=== PATIENT | female | born 1965 | race Caucasian/White ===

== ENCOUNTER 2018-06-01 14:30 | Inpatient (IN) | payer BC ==
[2018-06-01] VITALS (8 sets, daily range): BP systolic 112–126; BP diastolic 79–87
[~2018-06-01] VITALS: Ht 172.7 cm; Wt 60.8 kg
[~2018-06-01 14:30] MED LIST changes: -OMEP-137 PO
[2018-06-01] MEDS ORDERED: HYDROmorphone PCA 6 MG/30 ML IV PRN (14:55)
[2018-06-01] MEDS ORDERED: NS(*) 0.9% 1000 ML BAG 1,000 ML IV PRN ×2 (14:55→21:30)
[2018-06-01] MEDS ORDERED: ONDANSETRON 4 MG/2 ML VIAL IVP PRN (14:55)
[2018-06-01] MEDS ORDERED: NORMOSOL R SOLN(*) 1000 ML BAG 1,000 ML IV ONE (15:05)
[2018-06-01] MEDS ORDERED: NALOXONE HCL 0.4 MG/ML VIAL IVP PRN (15:05)
[2018-06-01] MEDS ORDERED: FAMOTIDINE 20 MG TAB PO ONE (15:05)
[2018-06-01] MEDS ORDERED: OMEP-137 PO (15:20)
[2018-06-01] MEDS ORDERED: ERTAPENEM(*) 1 GM VIAL 1 GM in NS(*) 0.9% 100 ML ADDVANT BAG 100 ML IVPB ONE (15:20)
[2018-06-01] MEDS ORDERED: LIDOCAINE MPF 1% 5 ML VIAL ONE (18:35)
[2018-06-01] MEDS ORDERED: DEXAMETHASONE SOD 4 MG/ML VIAL ONE (18:35)
[2018-06-01] MEDS ORDERED: ROCURONIUM BROM 10 MG/ML 10 ML ONE (18:35)
[2018-06-01] MEDS ORDERED: SUGAMMADEX SOD 200 MG/2 ML SDV ONE (18:35)
[2018-06-01] MEDS ORDERED: fentaNYL CITR 250 MCG/5 ML AMP ONE (18:35)
[2018-06-01] MEDS ORDERED: ONDANSETRON 4 MG/2 ML VIAL ONE (18:35)
[2018-06-01] MEDS ORDERED: PROPOFOL EMUL(*) 10MG/ML 20 ML 20 ML ONE (18:35)
[2018-06-01] MEDS ORDERED: KETAMINE HCL 200 MG/20 ML MDV ONE (18:36)
[2018-06-01] MEDS ORDERED: IOPAMIDOL 61% 75 ML INFUS BTL 75 ML ONE (18:40)
[2018-06-01] MEDS ORDERED: ROPIVACAINE 0.5% 20 ML VIAL ONE (18:40)
--- NOTE | 2018-06-01 18:48 | Gen Surgery History & Physical ---
History of Present Illness Chief Complaint RUQ abdominal pain History of Present Illness 52yo female presents with 4 days of constant RUQ abdominal pain. She's had intermittent RUQ pain over the last 9 months but 4 days ago it has been constant. She was seen by her PCM today and an U/S was found to be c/w acute cholecystitis so I was consulted by her PCM. She has had some nausea with 1 episode of emesis. No fevers or chills. No diarrhea or constipation. No jaundice, choleuria, or steatorrhea. History Problems: (1) GERD (gastroesophageal reflux disease) Status: Chronic (2) Tobacco dependence Status: Chronic Home Meds Reported Medications Omeprazole (OMEPRAZOLE) 20 Mg Tablet.dr, 40 MG PO QDAY, TAB 06/01/18 Allergies: Coded Allergies: No Known Drug Allergies (Verified , 10/21/15) Review of Systems All Systems Reviewed/Normal: Yes, Except as Noted Gastrointestinal: Nausea, Abdominal Pain Exam General Appearance: Alert, Awake, No Acute Distress, Afebrile Neuro: No Gross deficits Eyes: PERRLA GI: Other (Soft, RUQ TTP with strongly positive Velásquez's sign) Extremities: Warm, Perfused Assessment and Plan Problems: (1) Acute calculous cholecystitis Status: Acute Assessment & Plan: 06/01/18: Pt is admitted, started on IV abx, pain control, and IV fluids. I have recommended surgery with gallbladder removal. Will start laparoscopically but she is at higher risk of conversion to open surgery due to the duration of her symptoms. I have explained the surgery to her in great detail including both laparoscopic and open surgery as well as the alternatives, risks, and expected recovery. She indicates her understanding of this discussion and her questions have been answered and she would like to proceed with surgery. Condition Stable. Time Spent: < 30 min Venous Thromboembolism VTE Risk Physician Assess for VTE Risk: Yes Patient's VTE Risk: Low VTE Diagnostic Test 2 Days Prior to Admit: No Antithrombotics Is Pt On Any Antithrombotics?: No BRENNON MCGHEE MD Jun 01, 2018 18:48
[2018-06-01] MEDS ORDERED: DESFLURANE 240 ML BTL INH ONE (19:00)
[2018-06-01] MEDS ORDERED: fentaNYL CITR 100 MCG/2 ML AMP ONE ×2 (20:45→21:33)
--- NOTE | 2018-06-01 21:02 | RADIOLOGY IMAGING REPORT ---
FACILITY: [facility] - [place], [place] PATIENT NAME: Thea Carranza : 1965 MR: [id number] V: [id number] EXAM DATE: ORDERING PHYSICIAN: BRENNON MCGHEE TECHNOLOGIST: Location: [facility] [place] Patient: Thea Carranza : 1965 Visit/Account:[id number] Date of Sevice: 06/01/2018 EXAMINATION: Intraoperative fluoroscopic images of the right upper abdomen. HISTORY: Laparoscopic cholecystectomy. FINDINGS: Fluoroscopic images of the right upper abdomen were obtained in the OR during an intraoperative chola ngiogram. The cystic duct is cannulated. There is contrast opacification of the common bile duct and central i ntrahepatic ducts. No abnormal ductal dilatation or intraductal filling defect. Contrast passes int o the duodenum. There is partial opacification of the proximal pancreatic duct Dose: DAP was 0.18798 mGy*m2. IMPRESSION: Fluoroscopy was utilized during an intraoperative cholangiogram. No suspicious intraductal filling d efect. Please see the separate operative report for further description of findings. Report Dictated By: Andres Bird MD at 06/01/2018 8:57 PM Report E-Signed By: Andres Bird MD at 06/01/2018 8:58 PM WSN:[email or web address]
[2018-06-01] MEDS ORDERED: FLUSH 10 ML SYR IVP PRN (21:30)
--- NOTE | 2018-06-01 21:52 | Post Operative Progress Note ---
Post Operative Progress Note Date: Jun 01, 2018 Time: 21:34 Surgeon: Heath Dictation number: [id number] Anesthesia: GETA by Dr. Vargas Pre-Op Diagnosis: Acute cholecystitis Post-Op Diagnosis: YU Findings: Severe acute cholecystitis GB full of stones Normal IOC Procedure(s): Lap michelle with gram Specimen Removed:(May be N/A): GB and contents Complications: None Fluids: See anesthesia record Estimated Blood Loss: 60mL Date OP Note Dictated: Jun 01, 2018 Time OP Note Dictated: 21:35 BRENNON MCGHEE MD Jun 01, 2018 21:52
[2018-06-01] MEDS: PIPERACILLIN/TAZO*3.375GM VIAL 3.375 GM in NS(*) 0.9% 100 ML ADDVANT BAG 100 ML IVPB SCH (23:36)
--- NOTE | 2018-06-01 23:36 | OPERATIVE REPORT 1 ---
EVENT DATE: June 01, 2018 SURGEON: Leoncio Joe MD ANESTHESIOLOGIST: Niles Vargas MD ANESTHESIA: General endotracheal anesthesia. PREOPERATIVE DIAGNOSIS Acute cholecystitis. POSTOPERATIVE DIAGNOSIS Acute cholecystitis. PROCEDURE PERFORMED Laparoscopic cholecystectomy with intraoperative cholangiogram. COMPLICATIONS None. CONDITION Stable. BLOOD LOSS 60 mL INDICATIONS A 52-year-old female who presented to her primary care provider, Taryn Gao , with right upper quadrant abdominal pain, and she ordered some labs and an ultrasound which were consistent with acute cholecystitis. She contacted me, and I had the patient direct admitted and consented for cholecystectomy. The patient has had right upper quadrant pain off and on for the last nine months, but over the last four days, it has become more constant and getting more severe. DESCRIPTION OF PROCEDURE Patient was brought to the operating room and placed supine on the operating table. General endotracheal anesthesia was administered, and her abdomen was prepped and draped in a sterile fashion. A timeout was completed. I injected the infraumbilical rim with 0.5% ropivacaine plain. I made a curvilinear smiley face-type incision in the inferior umbilical rim and dissected down through the dermis and subcutaneous fat. I made a vertical incision in the midline fascia and placed two interrupted 0 Vicryl sutures transversely through the vertical fascial defect. I inserted a 12 mm Tato type port through this wound and secured it into place with sutures. I insufflated the abdomen to a pressure of 15 mmHg and inserted a 5 mm, 30-degree angled scope through this port. Next, under direct visualization, I placed a 5 mm port in the epigastric midline and two 5 mm ports in the right upper quadrant. Gross inspect of the abdominal cavity failed to reveal any evidence of other pathology. The gallbladder was easily visible, very large, and obviously injected. There were no signs of entry-related injury. Next, I had the patient placed in reverse Trendelenburg and planed toward her left to eviscerate the right upper quadrant. I could not grasp the gallbladder because it was too inflamed, and so I used a laparoscopic decompression needle and aspirated bile from the gallbladder until it was decompressed, and I could grab it. I then retracted the gallbladder towards the patient's right shoulder. There were adhesions of omentum to the liver. I took down these with hook electrocautery to avoid tearing the liver and causing bleeding. Once this was done, I had to take some adhesions between the duodenum and infundibulum down. This was done with hook electrocautery without any injury to the duodenum. I then divided the peritoneum overlying the infundibulum on both the medial and lateral aspects of the gallbladder. I stripped the peritoneum down to the triangle of Calot, and with careful dissection, the anatomic structures were not immediately clear. I took down fiber by fiber until I could identify the cystic duct and arteries. The cystic duct and arteries were actually stuck together initially. I saw a tubular structure which was coming out of the infundibulum that I took for the cystic duct, but when I placed a clip across it, I made a ductotomy, and it squirted blood, so I had to quickly clip this. It was a pretty sizable artery. With a little more dissection, I was able to tease apart the cystic duct and artery, and then I clipped the duct and artery proximally and distally and divided them between clips. I then clipped the duct at the infundibulum-cystic duct junction. I made ductotomy just distal to the clip and then milked the duct distally and proximally to remove any debris from the duct, and there was none. I then inserted a cholangiocatheter which was clamped into place. A cholangiogram was completed which revealed that I was in the cystic duct, away from the common duct structures, and I could observe contrast flowing up into the intrahepatic biliary system and also down through common bile duct into the duodenum, all without filling defects. I terminated the cholangiogram and placed three clips distal to the ductotomy and divided the duct between clips. I then divided the posterior attachments of the gallbladder and it from the gallbladder fossa. I placed the gallbladder in a surgical specimen retrieval bag and removed it from the abdomen through the umbilical port site. The gallbladder was so large and so full of stones that I had to make both the skin incision and the fascial incision much bigger to get it out. I then irrigated and dried the right upper quadrant. There was some oozing from the gallbladder fossa, and this was controlled with electrocautery. I then covered the gallbladder fossa with Surgicel and Luis. I made sure there was no bleeding when this was all done, and then I removed all the irrigation fluid from Stout pouch and around the liver and gallbladder fossa. I then removed all the instruments and ports, desufflated the abdomen, removed the umbilical port, and then closed the now enlarged fascial defect with a running 0 Vicryl suture and tied the running one as well as the cephalad and caudad preplaced sutures down with good reapproximation of the remaining fascial defect. I then closed the skin at each port site with 4-0 Monocryl subcuticular sutures. The skin was cleaned and dried, and Steri-Strips were applied, followed by sterile surgical dressing. The patient was awakened, extubated in the operating room, and transported to the recovery room in stable condition having tolerated the procedure without any apparent problems. YOLETTE
[2018-06-02] VITALS (9 sets, daily range): BP systolic 86–114; BP diastolic 47–78; Ht 172.7 cm; Wt 60.8 kg
[2018-06-02] MEDS: PIPERACILLIN/TAZO*3.375GM VIAL 3.375 GM in NS(*) 0.9% 100 ML ADDVANT BAG 100 ML IVPB SCH ×3 (06:14→17:35)
--- NOTE | 2018-06-02 06:37 | General Surgery Progress Note ---
Subjective Progress Notes Subjective Feeling better this morning. RUQ pain is better, now with appropriate postop pain. Passing flatus. Physical Exam Vital Signs Date Time Temp Pulse Resp B/P (MAP) Pulse Ox O2 Delivery O2 Flow Rate FiO2 06/02/18 06:08 12 97 06/02/18 04:00 97.8 69 106/71 (83) Nasal Cannula 1.0 General Appearance: Alert, Awake, No Acute Distress, Afebrile GI: Other (Soft, appropriate postop TTP, dressings C/D/I.) Extremities: Warm, Perfused Assessment and Plan Problems: (1) Acute calculous cholecystitis Status: Acute Assessment & Plan: 06/01/18: Pt is admitted, started on IV abx, pain control, and IV fluids. I have recommended surgery with gallbladder removal. Will start laparoscopically but she is at higher risk of conversion to open surgery due to the duration of her symptoms. I have explained the surgery to her in great detail including both laparoscopic and open surgery as well as the alternatives, risks, and expected recovery. She indicates her understanding of this discussion and her questions have been answered and she would like to proceed with surgery. 06/02/18: POD#1 s/p lap michelle with gram for severe acute calculous cholecystitis. Pt doing well. Will start clear diet and advance to regular diet as tolerated. If she tolerates this, will convert to PO meds and plan on d /c later today vs tomorrow morning. Condition Stable. Time Spent: < 30 min Exam Sepsis Risk: No Definite Risk BRENNON MCGHEE MD Jun 02, 2018 06:37
[2018-06-02] MEDS ORDERED: HYDROmorphone HCL 2 MG/ML SDV IVP PRN (06:40)
[2018-06-02] MEDS: DOCUSATE SODIUM 100 MG CAP PO SCH ×2 (07:58→20:39)
[2018-06-02] MEDS: PANTOPRAZOLE SOD 40 MG TABEC PO SCH (07:58)
[2018-06-02] MEDS ORDERED: PANTOPRAZOLE SOD 40 MG IV VIAL IVP SCH (09:00)
[2018-06-02] MEDS ORDERED: NALOXONE HCL 0.4 MG/ML VIAL IVP PRN ×2 (15:05→15:10)
[2018-06-02] MEDS ORDERED: ACETAMINOPHEN 325 MG TAB PO PRN (15:05)
[2018-06-02] MEDS ORDERED: HYDROmorphone PCA 6 MG/30 ML IV PRN (15:05)
--- NOTE | 2018-06-02 15:08 | Miscellaneous Provider Note ---
Miscellaneous Provider Note Note Pt is feeling a little more bloated with less flatus. Had salad and tater tots for lunch. Will return to clear diet and will give her time for ileus to resolve given severity of cholecystitis. BRENNON MCGHEE MD Jun 02, 2018 15:08
[2018-06-02] MEDS: KCL/D1/2NS 20 MEQ 1000 ML 1,000 ML IV SCH (16:06)
[2018-06-03] VITALS (7 sets, daily range): BP systolic 100–119; BP diastolic 63–80
[2018-06-03] MEDS: PIPERACILLIN/TAZO*3.375GM VIAL 3.375 GM in NS(*) 0.9% 100 ML ADDVANT BAG 100 ML IVPB SCH ×5 (00:19→23:55)
[2018-06-03] MEDS: KCL/D1/2NS 20 MEQ 1000 ML 1,000 ML IV SCH ×2 (04:19→23:55)
[2018-06-03] MEDS: PANTOPRAZOLE SOD 40 MG TABEC PO SCH (08:39)
[2018-06-03] MEDS: DOCUSATE SODIUM 100 MG CAP PO SCH ×2 (08:39→21:19)
--- NOTE | 2018-06-03 11:24 | General Surgery Progress Note ---
Subjective Progress Notes Subjective Feeling better, still feels bloated. Denies nausea. Tolerating clear liquids. No BM or flatus yet. Physical Exam Vital Signs Date Time Temp Pulse Resp B/P (MAP) Pulse Ox O2 Delivery O2 Flow Rate FiO2 06/03/18 09:09 12 93 06/03/18 09:07 Nasal Cannula 1.0 06/03/18 07:43 98.3 75 110/75 (87) General Appearance: Alert, Awake, No Acute Distress, Afebrile Neuro: No Gross deficits ENT: Moist Mucous Membranes Cardiovascular: Regular Rate and Rhythm Respiratory: No Respiratory Distress, Clear to Auscultation GI: Soft and Non-Tender (Bowel sounds present. Incisions okay) Extremities: Soft and Non Tender Psych: Alert & Oriented X3, Appropriate Mood & Affect Assessment and Plan Problems: (1) Acute calculous cholecystitis Status: Acute Assessment & Plan: 06/01/18: Pt is admitted, started on IV abx, pain control, and IV fluids. I have recommended surgery with gallbladder removal. Will start laparoscopically but she is at higher risk of conversion to open surgery due to the duration of her symptoms. I have explained the surgery to her in great detail including both laparoscopic and open surgery as well as the alternatives, risks, and expected recovery. She indicates her understanding of this discussion and her questions have been answered and she would like to proceed with surgery. 06/02/18: POD#1 s/p lap michelle with gram for severe acute calculous cholecystitis. Pt doing well. Will start clear diet and advance to regular diet as tolerated. If she tolerates this, will convert to PO meds and plan on d /c later today vs tomorrow morning. 06/03/18: POD#2 s/p lap michelle with IOC. Tolerating clear liquids, advance as tolerated after having bowel function. Dulcolax suppository. DC MECHANICAL TEST TECHNICIAN. [place] for expected incisional pain. Will hold discharge until return of bowel function. Time Spent: < 30 min Exam Sepsis Risk: No Definite Risk JEFF PATEL MD Jun 03, 2018 11:23
[2018-06-03] MEDS ORDERED: APAP/HYDROCODONE 325/5 TAB PO PRN (11:25)
[2018-06-03] MEDS ORDERED: BISACODYL 10 MG SUPP PR ONE (11:25)
[2018-06-03] MEDS: APAP/HYDROCODONE 325/5 TAB PO PRN ×2 (15:56→20:10)
[2018-06-04] MEDS: APAP/HYDROCODONE 325/5 TAB PO PRN ×3 (03:04→14:51)
[2018-06-04 03:05] VITALS: BP 120/77
[2018-06-04] MEDS: PIPERACILLIN/TAZO*3.375GM VIAL 3.375 GM in NS(*) 0.9% 100 ML ADDVANT BAG 100 ML IVPB SCH (05:31)
[2018-06-04 07:11] VITALS: BP 101/56
[2018-06-04] MEDS: DOCUSATE SODIUM 100 MG CAP PO SCH ×2 (08:49→21:12)
[2018-06-04] MEDS: PANTOPRAZOLE SOD 40 MG TABEC PO SCH (08:49)
--- NOTE | 2018-06-04 09:31 | General Surgery Progress Note ---
Subjective Progress Notes Subjective Feeling better. Still a little bloated, passing some flatus. Tolerating clear diet. Physical Exam Vital Signs Date Time Temp Pulse Resp B/P (MAP) Pulse Ox O2 Delivery O2 Flow Rate FiO2 06/04/18 07:27 90 Room Air 06/04/18 07:11 97.6 73 20 101/56 (71) 06/04/18 05:31 1.0 General Appearance: Alert, Awake, No Acute Distress, Afebrile GI: Other (Soft, appropriate postop TTP, incisions all look good without erythema or drainage.) Extremities: Warm, Perfused Assessment and Plan Problems: (1) Acute calculous cholecystitis Status: Acute Assessment & Plan: 06/01/18: Pt is admitted, started on IV abx, pain control, and IV fluids. I have recommended surgery with gallbladder removal. Will start laparoscopically but she is at higher risk of conversion to open surgery due to the duration of her symptoms. I have explained the surgery to her in great detail including both laparoscopic and open surgery as well as the alternatives, risks, and expected recovery. She indicates her understanding of this discussion and her questions have been answered and she would like to proceed with surgery. 06/02/18: POD#1 s/p lap michelle with gram for severe acute calculous cholecystitis. Pt doing well. Will start clear diet and advance to regular diet as tolerated. If she tolerates this, will convert to PO meds and plan on d /c later today vs tomorrow morning. 06/03/18: POD#2 s/p lap michelle with IOC. Tolerating clear liquids, advance as tolerated after having bowel function. Dulcolax suppository. DC HAND I BLOCKER. [address] for expected incisional pain. Will hold discharge until return of bowel function. 06/04/18: POD#3. Doing well. Tolerating clear diet. Still a little bloated but passing a little more flatus. Will try regular diet today and stop IV fluids and meds and convert over to PO meds. If she does well with this today then will plan on d/c to home this evening vs tomorrow morning. Condition Stable. Time Spent: < 30 min Exam Sepsis Risk: No Definite Risk BRENNON MCGHEE MD Jun 04, 2018 09:31
[2018-06-04 12:11] VITALS: BP 119/83
[2018-06-04 14:51] VITALS: BP 123/79
[2018-06-04] MEDS ORDERED: BISACODYL 10 MG SUPP PR ONE (16:50)
[2018-06-04 19:49] VITALS: BP 119/67
[2018-06-05] VITALS (8 sets, daily range): BP systolic 105–128; BP diastolic 69–85
[2018-06-05] MEDS: APAP/HYDROCODONE 325/5 TAB PO PRN (00:45)
[2018-06-05] MEDS ORDERED: NS(*) 0.9% 1000 ML BAG 1,000 ML IV PRN (07:50)
--- NOTE | 2018-06-05 07:50 | General Surgery Progress Note ---
Subjective Progress Notes Subjective Still c/o bloating and RLQ abdominal pain. Physical Exam Vital Signs Date Time Temp Pulse Resp B/P (MAP) Pulse Ox O2 Delivery O2 Flow Rate FiO2 06/05/18 07:33 94 Nasal Cannula 1.0 06/05/18 07:26 97.8 59 16 117/79 (92) General Appearance: Alert, Awake, No Acute Distress, Afebrile GI: Other (Soft, RLQ TTP with fullness. Incisions all look good without erythema or drainage) Extremities: Warm, Perfused Assessment and Plan Problems: (1) Acute calculous cholecystitis Status: Acute Assessment & Plan: 06/01/18: Pt is admitted, started on IV abx, pain control, and IV fluids. I have recommended surgery with gallbladder removal. Will start laparoscopically but she is at higher risk of conversion to open surgery due to the duration of her symptoms. I have explained the surgery to her in great detail including both laparoscopic and open surgery as well as the alternatives, risks, and expected recovery. She indicates her understanding of this discussion and her questions have been answered and she would like to proceed with surgery. 06/02/18: POD#1 s/p lap michelle with gram for severe acute calculous cholecystitis. Pt doing well. Will start clear diet and advance to regular diet as tolerated. If she tolerates this, will convert to PO meds and plan on d /c later today vs tomorrow morning. 06/03/18: POD#2 s/p lap michelle with IOC. Tolerating clear liquids, advance as tolerated after having bowel function. Dulcolax suppository. DC NAILER HAND. [place] for expected incisional pain. Will hold discharge until return of bowel function. 06/04/18: POD#3. Doing well. Tolerating clear diet. Still a little bloated but passing a little more flatus. Will try regular diet today and stop IV fluids and meds and convert over to PO meds. If she does well with this today then will plan on d/c to home this evening vs tomorrow morning. 06/05/18: POD#4. Vitals all look good but still with pain and fullness in RLQ. Will make NPO and check labs and CT abd/pelvis looking for abscess, hematoma, bile leak, etc. Condition Stable. Time Spent: < 30 min Exam Sepsis Risk: No Definite Risk BRENNON MCGHEE MD Jun 05, 2018 07:50
[2018-06-05 09:12] LABS: PLATELET COUNT, AUTOMATED 235 K/uL (150-450)
[2018-06-05] MEDS ORDERED: IOPAMIDOL 76% 100 ML INFUS BTL 100 ML ONE (09:27)
[2018-06-05] MEDS ORDERED: MAGNESIUM HYDROXIDE* 30ML UDCP PO ONE (10:45)
--- NOTE | 2018-06-05 10:57 | RADIOLOGY IMAGING REPORT ---
FACILITY: [facility] PATIENT NAME: Thea Carranza : 1965 MR: [id number] V: [id number] EXAM DATE: ORDERING PHYSICIAN: BRENNON MCGHEE TECHNOLOGIST: Location: [facility] Patient: Thea Carranza : 1965 Visit/Account:[id number] Date of Sevice: 06/05/2018 ABDOMEN/PELVIS WITH CONTRAST HISTORY: Postop RLQ abdominal pain, bloating, POD4 lap michelle TECHNIQUE: Following administration of IV contrast contiguous axial images acquired through the abdom en/pelvis. Coronal and sagittal reformatting also performed. Dose Lowering Technique One of the following dose optimization techniques was utilized in the performance of this exam: Autom ated exposure control; adjustment of the mA and/or kV according to the patient's size; or use of an i terative reconstruction technique. Specific details can be referenced in the facility's radiology C T exam operational policy. CONTRAST: 75 mL Isovue-370 COMPARISON: CT chest abdomen and pelvis August 24, 2015 FINDINGS: Visualized lung bases: There is a moderate amount of compressive atelectasis lower lobes and tiny bi lateral posterior layering pleural effusions Hepatobiliary: There are postsurgical changes from a cholecystectomy. There is mild periportal elio a which can be seen with IV hydration. There is a 3 x 2.1 x 5.3 cm collection within the gallbladder fossa containing multiple small air bubbles. There is no enhancing wall. This may simply represent a postoperative collection. There is a trace amount of free fluid in the abdomen and pelvis, likely postoperative. Also noted are tiny bubbles of free intraperitoneal air also postoperative. Liver is enlarged measuring 23 cm in length Spleen: Negative. Adrenals: Negative. Pancreas: Negative. Kidneys ureters or bladder: Negative. Genitalia: Negative. GI: There is moderate gaseous distention of the rectum. There is a moderate to large amount of feca l material seen throughout the remainder the colon consistent with constipation. The appendix contai ns air and barium and does not appear inflamed. There is no evidence of a small bowel obstruction or ileus . Vessels/spaces/nodes: The left-sided pelvic varicosities and dilatation of the left ovarian vein. T here are multiple left periaortic lymph nodes that appear mildly prominent. Investigative Reporter lymph nod e several centimeters below the level of the left renal vein measures 2.1 x 1.1 cm . There are mild vascular calcifications present Bones/soft tissues: There are postoperative changes from an old fracture through the posterior left acetabulum amount of air is seen in the intra-abdominal wall from recent laparoscopic surgery Additional findings: None pertinent. IMPRESSION: Postoperative changes from up scopic a cholecystectomy. There is a small collection within the gallb ladder fossa containing multiple air bubbles which could be postoperative in nature as there is no en hancing wall. Hepatomegaly There is a moderate to large amount of fecal material seen throughout the colon and moderate gaseous distention of the rectum. These changes are consistent with constipation. Left-sided pelvic varicosities and dilatation of the left ovarian vein Multiple mildly prominent left periaortic lymph nodes which could be reactive although follow-up nicko mmended Report Dictated By: Maria M Diana MD at 06/05/2018 10:37 AM Report E-Signed By: Maria M Diana MD at 06/05/2018 10:53 AM CARON:CARRIE
[2018-06-05] MEDS: DOCUSATE SODIUM 100 MG CAP PO SCH ×2 (10:58→20:34)
[2018-06-05] MEDS: POLYETHYLENE GLYCOL 17 GM PKT PO SCH (10:58)
[2018-06-05] MEDS: PANTOPRAZOLE SOD 40 MG TABEC PO SCH (10:58)
[2018-06-05] MEDS ORDERED: POLYETHYLENE GLYCOL 17 GM PKT ONE (10:58)
[2018-06-05] MEDS: MAGNESIUM HYDROXIDE* 30ML UDCP PO PRN (17:53)
[2018-06-06] MEDS ORDERED: MAGNESIUM CITRATE 300 ML BTL PO ONE (06:50)
--- NOTE | 2018-06-06 07:02 | Short(Outpt) Discharge Summary ---
Discharge Summary Reason for Hosp/Final Diag: (1) Acute calculous cholecystitis Status: Acute Hospital Course & Plan: 06/01/18: Pt is admitted, started on IV abx, pain control, and IV fluids. I have recommended surgery with gallbladder removal. Will start laparoscopically but she is at higher risk of conversion to open surgery due to the duration of her symptoms. I have explained the surgery to her in great detail including both laparoscopic and open surgery as well as the alternatives, risks, and expected recovery. She indicates her understanding of this discussion and her questions have been answered and she would like to proceed with surgery. 06/02/18: POD#1 s/p lap michelle with gram for severe acute calculous cholecystitis. Pt doing well. Will start clear diet and advance to regular diet as tolerated. If she tolerates this, will convert to PO meds and plan on d /c later today vs tomorrow morning. 06/03/18: POD#2 s/p lap michelle with IOC. Tolerating clear liquids, advance as tolerated after having bowel function. Dulcolax suppository. DC [employer]. [place] for expected incisional pain. Will hold discharge until return of bowel function. 06/04/18: POD#3. Doing well. Tolerating clear diet. Still a little bloated but passing a little more flatus. Will try regular diet today and stop IV fluids and meds and convert over to PO meds. If she does well with this today then will plan on d/c to home this evening vs tomorrow morning. 06/05/18: POD#4. Vitals all look good but still with pain and fullness in RLQ. Will make NPO and check labs and CT abd/pelvis looking for abscess, hematoma, bile leak, etc. 06/06/18: POD#5. CT and labs all unremarkable but with colon full of stool and main fullness and pain is in area of cecum which is full of stool. Passing a lot more flatus since bolstering her bowel regimen. No BM yet but feeling better. Tolerating diet. Will d/c to home on stool softeners, miralax. Departure Discharge to: Home, Self Care Discharge Instructions Home Meds Reported Medications Omeprazole (OMEPRAZOLE) 20 Mg Tablet., 40 MG PO QDAY, TAB 06/01/18 Follow up Referrals: General Surgery - 06/14/18 @ Surgery, General with Brennon Mcghee Md You have a follow up appointment scheduled with Dr. Mcghee on 06/14/18, at 3: 45pm. Please arrive 15 minutes early for your appointment. Diet: Regular Activity: As Tolerated Special Instructions: You may shower as desired but don't immerse the incisions for 2 weeks after surgery. Leave the steristrips in place until they fall off on their own. Do not perform any activity that involves straining or lifting more than 10 pounds for 2 weeks after surgery. Take 1 17gm packet of miralax every morning and take colace (docusate) twice each day until your bowels are back to normal. You can stop these if you develop diarrhea. Both of these are over the counter and can be picked up at any of the chain grocery stores in [facility]. BRENNON MCGHEE MD Jun 06, 2018 07:02
[2018-06-06 07:24] VITALS: BP 108/79
[2018-06-06] MEDS: DOCUSATE SODIUM 100 MG CAP PO SCH (08:24)
[2018-06-06] MEDS: POLYETHYLENE GLYCOL 17 GM PKT PO SCH (08:24)
[2018-06-06] MEDS: MAGNESIUM HYDROXIDE* 30ML UDCP PO PRN (08:24)
[2018-06-06] MEDS: PANTOPRAZOLE SOD 40 MG TABEC PO SCH (08:24)
== END 2018-06-06 09:42 | disposition home or self-care (01) | DRG 419 ==
LOC: MED 14:44 → INTOOBSV 14:44 → OBSVTOIN 14:44
PROVIDERS: ADMIT Surgery; ATTEND Surgery
PROC: BF14YZZ Fluoroscopy of Gallbladder, Bile Ducts and Pancreatic Ducts using Other Contrast (ICD-10-PCS; 2018-06-01)
PROC: 0FT44ZZ Resection of Gallbladder, Percutaneous Endoscopic Approach (ICD-10-PCS; principal; 2018-06-01 18:56)
DX: K80.00 Calculus of gallbladder with acute cholecystitis without obstruction (principal); K21.9 Gastro-esophageal reflux disease without esophagitis; F17.210 Nicotine dependence, cigarettes, uncomplicated
CPT/HCPCS: 36415; 74177; 74300; 82040; 82247; 82248; 82310; 82374; 82435; 82565; 82947; 83690; 84075; 84132; 84155; 84295; 84450; 84460; 84520; 85025; 88304; J1100; J1170; J1335; J2001; J2405; J2543; J2704; J2795; J3010; J3480; J3490; J7030; J7050; Q9967

== ENCOUNTER → 2018-06-01 | Outpatient (CLI) | payer BC ==
[~2018-06-01] MED LIST: OMEP-137 PO; PER PO
[2018-06-01 11:01] LABS: PLATELET COUNT, AUTOMATED 245 K/uL (150-450)
--- NOTE | 2018-06-01 12:46 | RADIOLOGY IMAGING REPORT ---
[place] [facility] [place]: Thea Carranza : 1965 MR: [id number] V: [id number] EXAM DATE: ORDERING PHYSICIAN: SUZY DOE TECHNOLOGIST: Location: [facility] - [place] Patient: Thea Carranza : 1965 Visit/Account:[id number] Date of Sevice: 06/01/2018 GALLBLADDER HISTORY: Biliary colic COMPARISON: CT chest seven pelvis August 24, 2015 FINDINGS: Gallbladder: Gallbladder is mildly distended with thickening of the gallbladder wall measuring up to 5.5 mm in thickness. There is a positive Velásquez sign by technologist notation. There are multiple m obile shadowing gallstones present. In the gallbladder fundus there is an additional irregular 3.4 x 2 x 2.8 cm partially shadowing nonmobile echogenic structure. This could represent a nonmobile gall stone or mass Liver: Liver is mildly enlarged measuring 18 cm in length Common duct: Normal, common bile duct is dilated up to 7 mm. mm diameter. Pancreas: Partially obscured by bowel, visualized aspects unremarkable. Right kidney: Right kidney appears unremarkable Upper abdominal aorta and IVC: Patent. Ascites: None visualized. IMPRESSION: Gallbladder is mildly distended without gallbladder wall thickening measuring up to 5.5 mm. There ar e numerous mobile stones within the gallbladder in addition to a 3.4 x 2 x 2.8 cm partially shadowing nonmobile echogenic structure at the gallbladder fundus. This could represent nonmobile gallstone o r mass. Common bile duct is dilated up to 7 mm. There is a positive Velásquez sign by technologist not ation. Findings are extremely concerning for acute cholecystitis. Results were called to SUZY DOE at the time the examination by the technologist. The patient remained in the hospital waiting for surgical consultation Report Dictated By: Maria M Diana MD at 06/01/2018 12:38 PM Report E-Signed By: Maria M Diana MD at 06/01/2018 12:43 PM WSN:[email or web address]
== END ==
LOC: US 07:17
PROVIDERS: ATTEND Nurse Practitioner Family
DX: K80.70 Calculus of gallbladder and bile duct without cholecystitis without obstruction (principal); R19.8 Other specified symptoms and signs involving the digestive system and abdomen; R10.11 Right upper quadrant pain; R10.13 Epigastric pain
CPT/HCPCS: 36415; 76705; 82040; 82150; 82247; 82310; 82374; 82435; 82565; 82947; 83690; 84075; 84132; 84155; 84295; 84450; 84460; 84520; 85025; 86677